=== PATIENT | female | born 2000 | race African-American/Black ===

== ENCOUNTER → 2022-03-27 | Outpatient (CLI) | payer MEDICAID, SELFPAY ==
[2022-03-27 16:10] LABS: Absolute Lymphocyte Count 1.28 X10^3/uL (0.83-4.51); Basophil# 0.01 X10^3/uL; Basophil% 0.1 % (0-1); Eosinophil# 0.05 X10^3/uL; Eosinophils% 0.6 % (0-5); Hemoglobin 10.7 g/dL (12.0-15.0); Lymphocyte # 1.28 X10^3/ul (0.83-4.51); Lymphocyte % 14.4 % (19-41); Mean Corp Hgb Conc 33.4 g/dL (32-36); Mean Corpuscular Hgb 30.5 pg (27.0-32.0); Mean Corpuscular Volume 91.2 fL (81-99); Mean Platelet Vol. 9.5 fl (6.2-12.0); Monocyte# 0.47 X10^3/uL; Monocyte% 5.3 % (0-10); NRBC Flagged by Analyzer 0 % (0-5); Neutrophil # 7.01 X10^3/uL (2.7-7.7); Neutrophil % 79.1 % (47-70); Platelet Count 278 K/mm3 (150-450); RBC Distribution Width CV 13.5 % (11.6-14.6); RBC Distribution Width SD 43.8 fl (35.1-43.9); Red Blood Count 3.51 M/mm3 (4.2-5.4); White Blood Count 8.9 K/mm3 (4.4-11.0)
[2022-03-28 09:28] LABS: HIV - WCH Non-Reactive (Nonreactive); Hepatitis B Surface Antigen Non-Reactive (Nonreactive); Hepatitis C Antibody Non-Reactive (Nonreactive); Rubella IgG Reactive (Nonreactive); Syphilis Antibodies Non-reactive
[2022-03-29 15:35] LABS: V-Zoster IgG (Immunity) < 135 index (Immune >165)
[2022-04-04 15:00] LABS: HPV Reflexed? NOT INDICATED
== END | disposition home or self-care (01) ==
PROVIDERS: Visit Provider Obstetrics & Gynecology
DX: O23.599 Infection of other part of genital tract in pregnancy, unspecified trimester (principal); N76.0 Acute vaginitis
CPT/HCPCS: 36415; 85025; 86703; 86762; 86780; 86787; 86803; 87086; 87088; 87340; 88175; G0145

== ENCOUNTER 2022-05-15 16:31 | Emergency (ER) | payer MEDICAID, SELFPAY ==
[2022-05-15 16:33] VITALS: BP 120/65; PULSE 109; RESP 16; TEMP 36.5; O2SAT 99; BMI 52.8
--- NOTE | 2022-05-15 18:25 | EX.ED.VIS.UR ---
HPI HPI - URI History of Present Illness Chief Complaint: Cold Sx Narrative Narrative: 21-year-old female presenting with cough for 2 weeks. He does not have a fever, chills, body aches. She does not have dyspnea. She has no nausea or vomiting. She is currently 30 weeks complications. No headache, fatigue. No abdominal pain. No vaginal bleeding or discharge. No loss of fluid vaginally. No UTI symptoms. ROS ROS ED Constitutional Constitutional ED: Denies chills, fever(s) or sweats Eyes Eyes: Denies blurry vision or change in vision ENT ENT ED: Denies ear pain or sore throat Cardiovascular Cardiovascular: Denies chest pain, palpitations or racing heartbeat Respiratory/Chest Respiratory/Chest: Reports cough; Denies dyspnea or sputum Gastrointestinal Gastrointestinal: Denies abdominal pain, constipation, diarrhea, nausea or vomiting Genitourinary Genitourinary ED: Denies dysuria, hematuria or urinary frequency Musculoskeletal Musculoskeletal: Denies arthralgias, myalgias or neck pain Integumentary Denies abscess, Abrasions or rash Neurologic Neurologic: Denies headache(s), paresthesias or weakness Psychiatric Psychiatric: Denies anxiety, depression, suicidal ideation or suicidal thoughts Endocrine Endocrinology: Denies polydipsia or polyuria PFSH PFSH Medical History no medical history Allergy/AdvReac Type Severity Reaction Status Date / Time No Known Allergies Allergy Verified 05/15/22 16:34 Surgical History no surgical history Social History Smoking Status: Never smoker EXAM Physical Exam Const Vital Signs: 05/15/22 16:33 05/15/22 17:57 Temperature 97.7 F L Temperature Source Temporal Pulse Rate 109 H Respiratory Rate 16 Respiratory Effort Normal Non-Labored Respiratory Depth Normal Respiratory Pattern Normal Blood Pressure 120/65 Blood Pressure Mean 83 Pulse Ox 99 Oxygen Delivery Method Room Air Room Air Positive well nourished General Appearance ED: NAD; Negative for pallor HEENT Reports moist mucous membranes normocephalic Eyes PERRL and EOMs intact bilaterally Neck no lymphadenopathy Resp normal respiratory effort and clear to auscultation bilaterally Auscultation: Negative for rales, rhonchi or wheezes GI non-tender and non-distended GI Narrative: Gravid Back/Spine no CVA tenderness Neuro oriented x3 Sensorium / Orientation: alert Psych mental status grossly normal Skin General Skin Exam: Negative for jaundice or pallor MDM MDM MDM Narrative Medical decision making narrative: Patient presenting for evaluation due to cough for 2 weeks. She states she initially had viral symptoms which have improved. She is eating and drinking normally. She is making normal urine and stool. She is 30 weeks without complication. She has not had any vaginal complaints. She is not in any pain. Patient's physical exam is unremarkable. Her vital signs are stable and she is afebrile. She is not requiring any oxygen. She denies chest pain or shortness of breath. At this point 2 weeks into symptoms I do not believe viral testing is necessary. Since her lungs are clear I do not believe she is a chest x-ray. Patient counseled to follow-up with her PCP and her APPLICATION PROCESSOR. Impression: 1. Cough Lab Data Attestation: I reviewed the patient's lab results. Discharge Plan Triage Chief Complaint: Cold Sx ED Provider: Bird Duvall Dx/Rx/DC Orders Instructions: ED Viral Syndrome (Adult) Primary Care Provider: Care Physician,No Primary Referrals: NOT,DEFINED [Non-Staff] - Disposition Disposition: Home, Self Care
[2022-05-15 18:51] VITALS: RESP 16
== END 2022-05-15 18:51 | disposition home or self-care (01) ==
PROVIDERS: Emergency Provider Student in an Organized Health Care Education/Training Program; Visit Provider Student in an Organized Health Care Education/Training Program
DX: O99.891 Other specified diseases and conditions complicating pregnancy (principal); R05.9 Cough, unspecified; Z3A.30 30 weeks gestation of pregnancy
CPT/HCPCS: 99282

== ENCOUNTER 2022-07-22 01:23 | Outpatient (CLI) | payer MEDICAID, SELFPAY ==
[2022-07-22 01:38] VITALS: BMI 47.3
[2022-07-22 02:01] VITALS: BP 111/59; PULSE 103; TEMP 36.4; O2SAT 98
[2022-07-22 02:29] LABS: Color, Urine Yellow (Yellow); Glucose, Dipstick Normal (Normal); Ketone-Dipstick Negative (Negative); Leukocyte Esterase-Dipstick 100 /ul (Negative); Nitrite-Dipstick Negative (Negative); Occult Blood-Urine Negative /ul (Negative); Protein-Dipstick 15 mg/dl (Negative); Specific Gravity, Urine 1.015 (1.002-1.030); Urine Bilirubin Dipstick Negative (Negative); Urine Clarity Clear (Clear); Urine Urobilinogen 4 mg/dl (Normal)
[2022-07-22 03:43] VITALS: BP 123/57; PULSE 100; TEMP 36.1
--- NOTE | 2022-07-22 07:34 | OB.TRI.HP_ITS ---
HPI - General HPI Narrative FARRAH DOVE, is a 21 F at 39.2 weeks gestation who presents to triage for contractions. She receives care through [facility] and has changed providers 2-3 times during . She stated she started having contractions earlier in the evening and they became stronger and closer. She denies any loss of fluid or vaginal bleeding. Positive movement. Reports she is scheduled this week for a repeat section in [place]. PFSH PFSH Medical History no medical history Home Medications famotidine 10 mg tablet 10 mg PO DAILY heartburn 07/22/22 [History Last Taken 07/21/22 08:00] ferrous sulfate 325 mg (65 mg iron) tablet 325 mg PO DAILY 07/22/22 [History Last Taken 07/21/22 08:00] [id number] 1 mg tablet 1 tab PO DAILY 07/22/22 [History Last Taken 07/21/22 08:00] Allergy/AdvReac Type Severity Reaction Status Date / Time No Known Allergies Allergy Verified 07/22/22 01:56 Surgical History no surgical history Social History Smoking Status: Never smoker ROS Eyes Eyes: Denies blurry vision Cardiovascular Cardiovascular: Reports none; Denies chest pain at rest, chest pain with activity or dizziness Respiratory/Chest Respiratory/Chest: Denies cough or dyspnea Gastrointestinal Gastrointestinal: Reports none and other; Denies diarrhea or vomiting Genitourinary Genitourinary: Denies dysuria Musculoskeletal Musculoskeletal: Reports none Integumentary Integumentary: Reports none; Denies rash Neurologic Neurologic: Denies dizziness, headache(s) or other visual disturbances Psychiatric Psychiatric: Reports none Physical Exam Const alert and no apparent distress General Appearance: cooperative Orientation / Consciousness: awake Exam Limitations: no limitations HEENT normocephalic Eyes General Eye: normal appearance of both eyes Neck full ROM Chest inspection of chest normal Resp normal respiratory effort and normal air movement Effort and Inspection: symmetric chest movement Auscultation: clear to auscultation bilaterally Cardio regular rate GI soft to palpation, non-tender and non-distended Inspection: and other Back/Spine normal ROM Extremity full ROM, normal capillary refill and no calf tenderness Skin no rashes or lesions noted Neuro oriented x3 and CN's II-XII intact bilaterally Psych mental status grossly normal Assessment & Plan (1) 39 weeks gestation of : (2) History of low transverse section: (3) Uterine contractions: (4) Late care affecting : PLAN: Plan Cat. 1 tracing NST reactive TOCO- irritability CE- closed/thick/high Release of records faxed D/C home with follow up tomorrow with primary POSITION CLASSIFIER Dr. Barney notified and is collaborating physician
== END 2022-07-22 04:04 | disposition home or self-care (01) ==
LOC: WPOUT 01:26 → WP 01:26
PROVIDERS: Obstetrics & Gynecology; Referring Provider Advanced Practice Midwife; Visit Provider Advanced Practice Midwife
DX: O47.1 False labor at or after 37 completed weeks of gestation (principal); Z3A.39 39 weeks gestation of pregnancy; O34.211 Maternal care for low transverse scar from previous cesarean delivery; O09.33 Supervision of pregnancy with insufficient antenatal care, third trimester
CPT/HCPCS: 59025; 59050; 81002; 99221; G0378

== ENCOUNTER 2024-10-17 16:07 | Emergency (ER) | payer MEDICAID, SELFPAY ==
[2024-10-17 16:09] VITALS: BP 125/76; PULSE 85; RESP 16; TEMP 36.8; O2SAT 100
--- NOTE | 2024-10-17 16:16 | EDS_ITS ---
HPI <JAMIE Jenkins - Last Filed: 10/17/24 16:48> History of Present Illness Chief Complaint: Lower Extremity Injury Narrative Narrative: 24-year-old female fell down 3 stairs injuring her right ankle. She states her foot rolled under itself and she felt a pop in the outer ankle and developed swelling. She has not tried to walk since. No weakness or numbness or tingling. PFSH <JAMIE Jenkins - Last Filed: 10/17/24 16:48> PFSH Home Medications ?Medication ?Instructions ?Recorded ?Last Taken ?Type famotidine 10 mg tablet 10 mg PO DAILY heartburn 11/0807/21/22 08:00 History ferrous sulfate 325 mg (65 mg 325 mg PO DAILY pregnanc y 07/22/22 07/21/22 08:00 History iron) tablet [id number] 1 mg 1 tab PO DAILY pregna ncy 07/22/22 07/21/22 08:00 History tablet Allergy/AdvReac Type Severity Reaction Status Date / Time No Known Allergies Allergy Verified 10/17/24 16:10 Surgical History Hx of section Social History (Updated 08/05/24 @ 11:22 by Hayde Mccabe MA) Smoking Status: Never smoker alcohol intake: never ROS <JAMIE Jenkins - Last Filed: 10/17/24 16:48> ROS ED ROS Narrative Neuro: Negative for motor/sensory dysfunction. Skin: Negative for wound. Musc: Positive for right ankle pain, swelling, trauma. EXAM <JAMIE Jenkins - Last Filed: 10/17/24 16:48> Physical Exam Narrative Exam Narrative: CONST: Patient sitting in no acute distress. EYES: Normal inspection. RESP: No respiratory distress, CTAB. CVS: Regular rate and rhythm, no murmur, no gallop. SKIN: Color normal, no rash, warm, dry, intact. EXTREMITIES: Soft tissue swelling right lateral ankle. Tender over the lateral malleolus. No tenderness of the medial or posterior ankle. No proximal fibular tenderness. No foot tenderness. Dorsiflexion and plantarflexion range of motion intact. Normal sensation. 2+ DP pulse. NEURO: Alert and answering questions appropriately. PSYCH: Normal affect. Const Vital Signs: 10/17/24 16:09 Temperature 98.2 F Temperature Source Oral Pulse Rate 85 Respiratory Rate 16 Blood Pressure 125/76 H Blood Pressure Mean 92 Pulse Ox 100 Oxygen Delivery Method Room Air <Dr. Chavo Mercedes MD - Last Filed: 10/17/24 16:46> Physical Exam Const Vital Signs: 10/17/24 16:09 Temperature 98.2 F Temperature Source Oral Pulse Rate 85 Respiratory Rate 16 Blood Pressure 125/76 H Blood Pressure Mean 92 Pulse Ox 100 Oxygen Delivery Method Room Air MDM <JAMIE Jenkins - Last Filed: 10/17/24 16:48> [facility] Narrative Medical decision making narrative: Differential: Ankle sprain versus fracture I have personally performed a face to face assessment of the patient and have reviewed the JALEESA Note. I performed a substantive portion of the visit including all aspects of the following. My nguyen findings include: History is 24-year-old female was walking down the steps while of her children was coming up the steps. As she took a step her foot inverted and twisted and now she has pain on the right lateral malleolus. No prior history. Denies any other injuries or complaints. Exam is [well-appearing 24-year-old female. Vital signs stable afebrile. H EENT exam pupils round reactive light. No trauma to her face or head. Neck and back nontender. Trachea midline. Lungs clear. Heart regular rhythm rate about 85 no murmur. Chest wall and ribs nontender. Abdomen soft nontender. Pelvic girdle intact. Left lower extremity both upper extremities nontender. No deformity. Normal range of motion and strength. Right hip and knee nontender. Right lateral malleolus swollen. No deformity. Dorsi plantarflexion intact. Medial malleolus nontender. Normal DP pulse. Foot nontender. Normal dorsi plantarflexion. Achilles intact. Neurologically she is awake alert. No focal motor deficits.] Medical Decision Making [24-year-old x-ray taken of her right ankle 3 views shows no fracture or dislocation. Treated as an ankle sprain. Ice. Elevate. Anti-inflammatory. Aircast and crutches.] Other additions or changes: [None] <Dr. Chavo Mercedes MD - Last Filed: 10/17/24 16:46> [facility] Narrative Medical decision making narrative: I have personally performed a face to face assessment of the patient and have reviewed the JALEESA Note. I performed a substantive portion of the visit including all aspects of the following. My nguyen findings include: History is 24-year-old female was walking down the steps while of her children was coming up the steps. As she took a step her foot inverted and twisted and now she has pain on the right lateral malleolus. No prior history. Denies any other injuries or complaints. Exam is [well-appearing 24-year-old female. Vital signs stable afebrile. H EENT exam pupils round reactive light. No trauma to her face or head. Neck and back nontender. Trachea midline. Lungs clear. Heart regular rhythm rate about 85 no murmur. Chest wall and ribs nontender. Abdomen soft nontender. Pelvic girdle intact. Left lower extremity both upper extremities nontender. No deformity. Normal range of motion and strength. Right hip and knee nontender. Right lateral malleolus swollen. No deformity. Dorsi plantarflexion intact. Medial malleolus nontender. Normal DP pulse. Foot nontender. Normal dorsi plantarflexion. Achilles intact. Neurologically she is awake alert. No focal motor deficits.] Medical Decision Making [24-year-old x-ray taken of her right ankle 3 views shows no fracture or dislocation. Treated as an ankle sprain. Ice. Elevate. Anti-inflammatory. Aircast and crutches.] Other additions or changes: [None] History & Record Review Discussion w/independent historian: Patient Radiography Chest X-Ray - ED: Read by ED Physician Diagnostic Testing: Right ankle x-ray, 3 views, interpreted by myself. Shows no fracture. No dislocation. Lateral malleolus soft tissue swelling. Consistent with ankle sprain. Discharge Plan Triage Chief Complaint: Lower Extremity Injury ED Midlevel Provider: Shelly Chu ED Provider: Chavo Mercedes Dx/Rx/DC Orders Clinical Impression: Sprain of right ankle Instructions: ED Ankle Sprain (Adult) Prescriptions: No Action famotidine 10 mg Tablet 10 mg PO DAILY ferrous sulfate 325 mg (65 mg iron) Tablet 325 mg PO DAILY 1 mg Tablet 1 tab PO DAILY Primary Care Provider: Care Physician,No Primary Referrals: Care Physician,No Primary [Primary Care Provider] - Activity Restrictions/Additional Instructions: You have an ankle sprain. Rest, ice, elevate and take Tylenol or Motrin as needed. If it is not improving in a week follow-up with your primary care doctor. Print Language: Danish Disposition Disposition: Home, Self Care
--- NOTE | 2024-10-17 16:16 | RAD_ITS ---
PROCEDURE: ANKLE MIN 3 VIEWS 10/17/2024 REASON FOR EXAM: PAIN TECHNIQUE: 3 views of the right ankle COMPARISON: None RAD/Ankle min 3 Views IMPRESSION: No acute fracture or dislocations. Mild diffuse soft tissue edema. No radiogr aphic foreign body. Reading Location: [id number]
[2024-10-17] MEDS: Acetaminophen 500 MG Tablet 1000 MG PO (16:20)
[2024-10-17 16:59] VITALS: BP 115/77; PULSE 62; RESP 18; TEMP 36.6; O2SAT 99
== END 2024-10-17 17:03 | disposition home or self-care (01) ==
PROVIDERS: Emergency Provider Emergency Medicine; Visit Provider Emergency Medicine
DX: S93.401A Sprain of unspecified ligament of right ankle, initial encounter (principal); X50.1XXA Overexertion from prolonged static or awkward postures, initial encounter
CPT/HCPCS: 73610; 99284